=== PATIENT | male | born 1970 | race Caucasian/White ===

== ENCOUNTER 2019-07-11 22:44 | Emergency (ER) | payer SELFPAY ==
[~2019-07-11] VITALS: Ht 188 cm; Wt 99.0 kg
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
[2019-07-11] MEDS ORDERED: NEOSPORIN OINT. PKT 1 PACKET ONE (23:02)
[2019-07-12 01:05] VITALS: BP 130/80
== END 2019-07-12 01:07 | disposition home or self-care (01) ==
LOC: ED 07-12 00:46
DX: G89.11 Acute pain due to trauma (principal); M25.531 Pain in right wrist; M25.562 Pain in left knee; M79.641 Pain in right hand; Y04.8XXA Assault by other bodily force, initial encounter; Y93.89 Activity, other specified; Y92.89 Other specified places as the place of occurrence of the external cause; Y99.8 Other external cause status
CPT/HCPCS: 99284